=== PATIENT | female | born 1950 | race African-American/Black ===

== ENCOUNTER 2022-01-16 13:09 | Observation (INO) | payer OTHER ==
[2022-01-16 13:29] VITALS: BMI 32.3
[2022-01-16 16:54] LABS: BASO % 0.9 % (0-2.0); HEMATOCRIT 38.9 % (32.4-45.2); HEMOGLOBIN 12.5 GM/dL (10.7-15.3); LYMPH % 34.8 % (8-40); MCHC 32.2 g/dl (32.0-36.0); MEAN CELL VOLUME 87.2 fl (80-96); MEAN PLT VOLUME 8.9 fl (7.5-11.1); MONO % 6.5 % (3.8-10.2); NEUT % 55.8 % (42.8-82.8); PLATELET COUNT 392 10^3/uL (134-434); RBC 4.46 M/mm3 (3.60-5.2)
[2022-01-16 17:22] LABS: CALCIUM 9.1 mg/dL (8.5-10.1)
[2022-01-16 17:23] LABS: ALBUMIN 3.4 g/dl (3.4-5.0); BLOOD UREA NITROGEN 19.6 mg/dL (7-18)
[2022-01-16 17:26] LABS: CREATININE 0.9 mg/dL (0.55-1.3)
[2022-01-16 17:28] LABS: BILIRUBIN,TOTAL 0.8 mg/dL (0.2-1); TOT PROT 7.1 g/dl (6.4-8.2)
[2022-01-16 17:31] LABS: N-TERMINAL BNP 151.9 pg/ml (5-125)
[2022-01-16 17:33] LABS: ACTIVATED PTT 30.7 SECONDS (25.2-36.5); INR 1.06 (0.83-1.09); PROTHROMBIN TIME (PATIENT) 12.2 SEC (9.7-13.0)
[2022-01-16] MEDS ORDERED: ENOXAPARIN NA (PORCINE) 80 MG/0.8 ML DISP.SYRIN SQ ONE (18:59)
[2022-01-16] MEDS ORDERED: ENOXAPARIN NA (PORCINE) 100 MG/1 ML DISP.SYRIN SQ ONE (19:17)
[2022-01-17 02:45] VITALS: PULSE 80; RESP 18; TEMP 97.8
[2022-01-17] MEDS ORDERED: ACETAMINOPHEN 325 MG TABLET (FP) ONE ×2 (02:50→09:49)
[2022-01-17] MEDS: ACETAMINOPHEN 325 MG TABLET (FP) PO PRN ×2 (02:52→09:52)
[2022-01-17] MEDS ORDERED: APIXABAN 5 MG TABLET PO SCH ×2 (08:28→10:00)
[2022-01-17 09:17] LABS: BASO % 1.2 % (0-2.0); EOS % 2.3 % (0-4.5); HEMATOCRIT 36.9 % (32.4-45.2); HEMOGLOBIN 11.8 GM/dL (10.7-15.3); LYMPH % 36.5 % (8-40); MCH 27.9 pg (25.7-33.7); MEAN CELL VOLUME 87.3 fl (80-96); MEAN PLT VOLUME 9.4 fl (7.5-11.1); MONO % 7.5 % (3.8-10.2); NEUT % 52.5 % (42.8-82.8); PLATELET COUNT 345 10^3/uL (134-434); RBC 4.23 M/mm3 (3.60-5.2); RDW 13.2 % (11.6-15.6); WHITE BLOOD COUNT 5.3 K/mm3 (4.0-10.0)
[2022-01-17 09:19] LABS: BLOOD UREA NITROGEN 21.6 mg/dL (7-18)
[2022-01-17 09:21] LABS: CALCIUM 8.8 mg/dL (8.5-10.1)
[2022-01-17 09:22] LABS: CREATININE 0.8 mg/dL (0.55-1.3); MAGNESIUM 2.5 mg/dL (1.8-2.4)
[2022-01-17] MEDS ORDERED: APIXABAN 5 MG TABLET ONE (09:48)
[2022-01-17 10:31] VITALS: BP 129/64
== END 2022-01-17 10:30 | disposition home or self-care (01) ==
LOC: JER 13:09 → JERBED 22:33
PROVIDERS: ADMIT Internal Medicine; ATTEND Internal Medicine
PROC: 3E023GC Introduction of Other Therapeutic Substance into Muscle, Percutaneous Approach (ICD-10-PCS; principal; 2022-01-16)
DX: J45.909 Unspecified asthma, uncomplicated (principal); M81.0 Age-related osteoporosis without current pathological fracture; M19.90 Unspecified osteoarthritis, unspecified site; M79.7 Fibromyalgia; I82.432 Acute embolism and thrombosis of left popliteal vein
CPT/HCPCS: 0241U-QW; 36415; 71275-TC; 80048; 80053; 83735; 83880; 84100; 84484; 85025; 85610; 85730; 93971-TC; 96372; 99285-25; G0378; Q9967

== ENCOUNTER 2022-07-15 18:51 | Emergency (ER) | payer OTHER ==
[2022-07-15 19:50] VITALS: RESP 20
[2022-07-15 21:13] LABS: BASO % 1.1 % (0-2.0); EOS % 2.9 % (0-4.5); HEMATOCRIT 37.7 % (32.4-45.2); HEMOGLOBIN 12.4 GM/dL (10.7-15.3); LYMPH % 36.2 % (8-40); MCH 28.2 pg (25.7-33.7); MEAN CELL VOLUME 85.4 fl (80-96); MEAN PLT VOLUME 9.4 fl (7.5-11.1); MONO % 5.8 % (3.8-10.2); PLATELET COUNT 253 10^3/uL (134-434); RBC 4.42 M/mm3 (3.60-5.2); RDW 13.3 % (11.6-15.6)
[2022-07-15 21:29] LABS: INR 1.23 (0.83-1.09); PROTHROMBIN TIME (PATIENT) 14.2 SEC (9.7-13.0)
[2022-07-15 21:32] LABS: ACTIVATED PTT 37.5 SECONDS (25.2-36.5); POTASSIUM 5.6 mmol/L (3.5-5.1)
[2022-07-15 21:35] LABS: ALBUMIN 3.6 g/dl (3.4-5.0); CALCIUM 9.1 mg/dL (8.5-10.1)
[2022-07-15 21:36] LABS: BLOOD UREA NITROGEN 20.2 mg/dL (7-18)
[2022-07-15 21:40] LABS: BILIRUBIN,TOTAL 0.5 mg/dL (0.2-1)
[2022-07-16 05:49] VITALS: PULSE 72
[2022-07-16 05:50] VITALS: BP 144/62; TEMP 98.4
== END 2022-07-16 05:50 | disposition home or self-care (01) ==
LOC: JER 18:51
DX: R07.1 Chest pain on breathing (principal); R53.83 Other fatigue; R11.0 Nausea; R19.7 Diarrhea, unspecified; R06.02 Shortness of breath; R51.9 Headache, unspecified; H57.10 Ocular pain, unspecified eye; H57.89 Other specified disorders of eye and adnexa; R60.0 Localized edema; Z20.822 Contact with and (suspected) exposure to COVID-19
CPT/HCPCS: 0241U-QW; 36415; 71046-TC-FY; 71275-TC; 80053; 84484; 85025; 85610; 85730; 93005; 93010; 99285-25; Q9967